=== PATIENT | male | born 1990 | race Caucasian/White ===

== ENCOUNTER 2019-01-07 11:11 | Emergency (ER) | payer BC ==
[~2019-01-07] VITALS: Ht 177.8 cm; Wt 83.0 kg
[2019-01-07 11:27] VITALS: BP 145/73
--- NOTE | 2019-01-07 11:33 | NUR ---
PATIENT AMBULATED TO BED 4
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
[2019-01-07] MEDS ORDERED: IBUPROFEN 400 MG TAB PO ONE (12:15)
[2019-01-07] MEDS ORDERED: FAMOTIDINE 20 MG TAB PO ONE (12:15)
--- NOTE | 2019-01-07 12:35 | NUR ---
Patient discharged with v/s stable. Written and verbal after care instructions given and explained. Patient alert, oriented and verbalized understanding of instructions. Ambulatory with steady gait. All questions addressed prior to discharge. ID band removed. Patient advised to follow up with PMD. Rx of norco and pepcid given. Patient educated on indication of medication including possible reaction and side effects. Opportunity to ask questions provided and answered.
== END 2019-01-07 12:35 | disposition home or self-care (01) ==
LOC: MED 11:11
DX: M54.5 Low back pain (principal); R03.0 Elevated blood-pressure reading, without diagnosis of hypertension
CPT/HCPCS: 99283